=== PATIENT | female | born 1975 | race Caucasian/White ===

== ENCOUNTER → 2021-08-09 | Outpatient (CLI) | payer OTHER | LOC: EXRD 13:02 | DX: M54.50 Low back pain, unspecified (principal); G89.29 Other chronic pain; M47.816 Spondylosis without myelopathy or radiculopathy, lumbar region | CPT/HCPCS: 72110 ==

== ENCOUNTER → 2021-08-31 | Outpatient (CLI) | payer OTHER | LOC: RAD 14:58 | DX: J44.9 Chronic obstructive pulmonary disease, unspecified (principal) | CPT/HCPCS: 71046 ==

== ENCOUNTER → 2021-09-11 | Day surgery (SDC) | payer OTHER ==
[~2021-09-11] MED LIST: AMITRIPTYLINE H10 MG PO; LORATADINE-D 21 EACH PO; OZEMPIC 4 MG/3 ML SQ; PROVENTIL HFA6.7 GM INH; PROZAC20 MG PO; STOOL SOFTENER100 M1 PO; SUBOXONE 8 MG-1 EACH SL; TOPAMAX100 MG PO; TURMERIC PO; [UNRECOGNIZED DRUG - OTHER] PO
== END | disposition home or self-care (01) ==
LOC: OR 06:05
DX: K31.9 Disease of stomach and duodenum, unspecified (principal); K57.30 Diverticulosis of large intestine without perforation or abscess without bleeding; K64.0 First degree hemorrhoids; K59.09 Other constipation; E11.9 Type 2 diabetes mellitus without complications; F31.9 Bipolar disorder, unspecified; Z88.2 Allergy status to sulfonamides; E66.3 Overweight; Z20.822 Contact with and (suspected) exposure to COVID-19; Z87.19 Personal history of other diseases of the digestive system
CPT/HCPCS: 82962; 84703; J2704; J7040

== ENCOUNTER → 2021-09-18 | Outpatient (CLI) | payer OTHER | LOC: KOH-I 08:00 | DX: M54.2 Cervicalgia (principal); M47.812 Spondylosis without myelopathy or radiculopathy, cervical region | CPT/HCPCS: 72125 ==

== ENCOUNTER → 2021-10-05 | Outpatient (CLI) | payer OTHER | LOC: EXRD 09:03 | DX: M25.512 Pain in left shoulder (principal); M54.2 Cervicalgia | CPT/HCPCS: 72050; 73030 ==

== ENCOUNTER → 2021-10-30 | Outpatient (CLI) | payer OTHER | LOC: MAMO 15:19 | DX: Z12.31 Encounter for screening mammogram for malignant neoplasm of breast (principal) | CPT/HCPCS: 77063; 77067 ==

== ENCOUNTER → 2021-11-12 | Outpatient (CLI) | payer OTHER | LOC: HEART 5 13:26 | DX: J44.9 Chronic obstructive pulmonary disease, unspecified (principal); R06.02 Shortness of breath | CPT/HCPCS: 94060; 94729 ==

== ENCOUNTER 2021-12-24 19:35 | Emergency (ER) | payer OTHER ==
[2021-12-24 21:01] LABS: HEMOGLOBIN 13.9 gm/dl (12.3-15.3); RED BLOOD COUNT 4.6 M/UL (4.00-5.10); WHITE BLOOD COUNT 11.7 K/UL (4.5-11.0)
[2021-12-24 21:37] LABS: BUN/CREATININE RATIO 8 (0-10)
== END 2021-12-25 01:10 | disposition home or self-care (01) ==
LOC: ER1 19:35
PROVIDERS: Family Medicine
DX: R10.9 Unspecified abdominal pain (principal); Z20.822 Contact with and (suspected) exposure to COVID-19; F17.210 Nicotine dependence, cigarettes, uncomplicated
CPT/HCPCS: 0240U; 71045; 80053; 81001; 82550; 82553; 82962; 83690; 84484; 85025; 93005; 99284; J1885; Q9967

== ENCOUNTER → 2022-01-06 | Outpatient (CLI) | payer OTHER | LOC: SLEEP 12:12 | DX: G47.30 Sleep apnea, unspecified (principal); J30.9 Allergic rhinitis, unspecified; M19.90 Unspecified osteoarthritis, unspecified site; F31.9 Bipolar disorder, unspecified; G89.29 Other chronic pain; M54.50 Low back pain, unspecified; M54.2 Cervicalgia; K50.90 Crohn's disease, unspecified, without complications | CPT/HCPCS: 95810 ==

== ENCOUNTER → 2022-04-25 | Outpatient (CLI) | payer OTHER | LOC: EXRD 11:40 | DX: M79.671 Pain in right foot (principal); M79.672 Pain in left foot | CPT/HCPCS: 73630 ==

== ENCOUNTER 2022-07-08 15:07 | Emergency (ER) | payer OTHER ==
[2022-07-08 16:26] LABS: HEMOGLOBIN 13.1 gm/dl (12.3-15.3); WHITE BLOOD COUNT 11.3 K/UL (4.5-11.0)
[2022-07-08 17:07] LABS: BUN/CREATININE RATIO 9 (0-10)
[2022-07-08] MEDS ORDERED: NORFLEX 100 MG100 MG PO (21:51)
[2022-07-08] MEDS ORDERED: IBUPROFEN600 MG PO (21:51)
== END 2022-07-08 22:20 | disposition home or self-care (01) ==
LOC: ER1 15:07
PROVIDERS: Physician Assistant Medical
DX: R07.89 Other chest pain (principal); R10.12 Left upper quadrant pain; R05.9 Cough, unspecified; E11.9 Type 2 diabetes mellitus without complications; I10 Essential (primary) hypertension; J44.9 Chronic obstructive pulmonary disease, unspecified; G47.30 Sleep apnea, unspecified; F17.210 Nicotine dependence, cigarettes, uncomplicated; Z90.49 Acquired absence of other specified parts of digestive tract; Z86.19 Personal history of other infectious and parasitic diseases; Z88.2 Allergy status to sulfonamides
CPT/HCPCS: 71111; 80053; 81001; 82550; 82553; 83690; 84484; 85025; 93005; 96374; 99285; J1885; Q9967

== ENCOUNTER 2022-07-18 18:18 | Emergency (ER) | payer OTHER ==
[~2022-07-18 18:18] MED LIST changes: +IBUPROFEN600 MG PO; +NORFLEX 100 MG100 MG PO
[2022-07-18 21:02] LABS: HEMOGLOBIN 13.2 gm/dl (12.3-15.3); RED BLOOD COUNT 3.99 M/UL (4.00-5.10); WHITE BLOOD COUNT 8.7 K/UL (4.5-11.0)
[2022-07-18 21:19] LABS: BUN/CREATININE RATIO 9 (0-10)
== END 2022-07-18 21:39 | disposition home or self-care (01) ==
LOC: ER1 18:18
PROVIDERS: Preventive Medicine Occupational Medicine
DX: R07.89 Other chest pain (principal); R22.0 Localized swelling, mass and lump, head; J44.9 Chronic obstructive pulmonary disease, unspecified; I10 Essential (primary) hypertension
CPT/HCPCS: 70450; 70486; 71045; 80053; 82550; 82553; 83690; 83880; 84484; 85025; 85652; 86140; 93005; 99285